=== PATIENT | female | born 1970 | race Caucasian/White ===

== ENCOUNTER 2017-06-27 08:25 | Day surgery (SDC) | payer OTHER ==
[2017-06-27] MEDS: NEPAFENAC 0.1% 3 ML OPH OPER (09:51)
[2017-06-27] MEDS: MOXIFLOXACIN 0.5% 3 ML OPH OPER (09:51)
[2017-06-27] MEDS: CYCLOPENTOLATE 2% 2 ML OPH OPER (09:51)
[2017-06-27] MEDS: PHENYLephrine 10% 5 ML OPH OPER (09:51)
[2017-06-27] MEDS ORDERED: LIDOCAINE 2% (SDV) 5 ML INJ (10:21)
[2017-06-27] MEDS ORDERED: TIMOLOL 0.5% 5 ML OPH (10:21)
[2017-06-27] MEDS ORDERED: EPINEPHrine 1 MG INJ (10:21)
[2017-06-27] MEDS ORDERED: BUPIVACAINE 0.75% (MPF) 10 ML INJ (10:21)
[2017-06-27] MEDS ORDERED: LIDOCAINE 1% (MPF) 10 ML INJ (10:21)
[2017-06-27] MEDS ORDERED: PROPOFOL 20 ML (10:47)
[2017-06-27] MEDS: LIDOCAINE 2% (SDV) 5 ML INJ INJ (11:01)
[2017-06-27] MEDS: NA BICARBONATE 8.4% 50 ML SYG ZFS (11:01)
[2017-06-27] MEDS: BUPIVACAINE 0.75% (MPF) 10 ML INJ INJ (11:01)
[2017-06-27] MEDS: LIDOCAINE 1% (MPF) 5 ML VIAL INJ (11:15)
[2017-06-27] MEDS: TIMOLOL 0.5% 5 ML OPH RIGHT EYE (11:15)
== END 2017-06-27 13:00 | disposition home or self-care (01) ==
LOC: SDS 08:25
DX: H25.11 Age-related nuclear cataract, right eye (principal)
CPT/HCPCS: 66984; 84703